=== PATIENT | female | born 1995 | race Caucasian/White ===

== ENCOUNTER 2021-08-12 06:38 | Outpatient (CLI) | payer OTHER, SELFPAY ==
--- NOTE | ~2021-08-12 | CT_ITS ---
EXAMINATION: CT soft tissue neck wo con EXAM DATE: 08/12/2021 07:16 INDICATION: Enlarged lymph nodes. TECHNIQUE: Spiral CT of the neck was performed without contrast. Axial, coronal and sagittal images were reviewed. The dose-length product (DLP) for this examination was 589.35 mGy-cm. The exposure was tailored according to patient size (auto mA exposure control), and iterative reconstruction (ASIR ) was used as additional dose reduction technique. There is no prior study for comparison. FINDINGS: There is an externally placed marker overlying the left posterior cervical triangle. Deep t o this is a lymph node measuring 1.0 x 0.7 cm, within normal size limits. This does have small expect ed fatty hilum. No pathologically enlarged cervical lymph nodes. The thyroid gland is unremarkable. The submandibular and parotid glands are symmetric. The superior mediastinum is unremarkable. T he airway is unremarkable. Parapharyngeal and pre-glottic fat planes are preserved. Limited evalu ation of cervical vessels on this noncontrast study. The orbits are unremarkable. Visualized sinu ses and mastoid air cells are well aerated. Lung apices unremarkable. Cervical spine normal. IMPRESSION: Cervical lymph nodes within normal size limits. Recommend clinical follow-up and if this enlarges consider a targeted soft tissue ultrasound exam. Reviewed, dictated and finalized at location B. TYPIST IMPRESSION: Cervical lymph nodes within normal size limits. Recommend clinical follow-up and if this enlarges consider a targeted soft tissue ultrasound exam .
== END 2021-08-12 06:39 | disposition home or self-care (01) ==
PROVIDERS: PCP Family Medicine
DX: R59.0 Localized enlarged lymph nodes (principal)
CPT/HCPCS: 70490

== ENCOUNTER 2021-08-18 11:07 | Outpatient (CLI) | payer OTHER, SELFPAY ==
--- NOTE | ~2021-08-18 | US_ITS ---
EXAMINATION: US soft tissue head and neck EXAM DATE: 08/18/2021 11:28 INDICATION: Enlarged cervical lymph nodes. TECHNIQUE: Multiple grayscale and Doppler images of the symptomatic left neck soft tissue region were obtained (by a technologist who performed the scan) and subsequently reviewed. There is no prior st udy for comparison. FINDINGS: Scanning in the area of left lateral neck concern demonstrates several lymph nodes, largest measuring 2.4 x 1.2 x 0.5 cm with fatty hilum. This is within normal size limits. IMPRESSION: Left cervical lymph nodes within normal size limits. Clinical follow-up and if these enla rge consider repeat exam. Reviewed, dictated and finalized at location A. ING ANALYST IMPRESSION: Left cervical lymph nodes within normal size limits. Clinical follo w-up and if these enlarge consider repeat exam.
== END 2021-08-18 11:08 | disposition home or self-care (01) ==
PROVIDERS: PCP Family Medicine; Visit Provider Family Medicine
DX: R59.1 Generalized enlarged lymph nodes (principal)
CPT/HCPCS: 76536

== ENCOUNTER 2021-12-01 09:13 | Outpatient (CLI) | payer OTHER, SELFPAY ==
[2021-12-01 09:41] LABS: Basophils Percent Auto 0.6 % (0.2-1.2); Eosinophils Absolute Auto 0.1 K/mm3 (0-0.3); Eosinophils Percent Auto 1.8 % (0-4.4); Hematocrit 41.8 % (37.0-47.0); Hemoglobin 13.7 g/dL (12.0-15.0); Immature Granulocyte Absolute 0.01 K/mm3 (0.00-0.031); Immature Granulocyte Percent A 0.2 % (0-0.5); Lymphocytes Absolute Auto 2.28 K/mm3 (0.9-3.2); Lymphocytes Percent Auto 34.4 % (18.3-44.2); Mean Corpuscular HGB Conc 32.8 g/dl (32-36); Mean Corpuscular Hemoglobin 30.5 pg (26-34); Mean Corpuscular Volume 93.1 fl (80-100); Monocytes Absolute Auto 0.5 K/mm3 (0.1-0.6); Monocytes Percent Auto 7.9 % (2.6-8.5); Neutrophils Absolute Auto 3.7 K/mm3 (1.3-6.7); Neutrophils Percent Auto 55.1 % (45.5-73.1); Platelet Count Result 213 k/mm3 (150-375); Red Blood Count 4.49 M/mm3 (4.2-5.4); Red Cell Distribution Width 12.6 % (11.5-14.5); White Blood Count 6.6 K/mm3 (4.5-10.0)
[2021-12-01 09:48] LABS: Alanine Aminotransferase 15 U/L (4-35); Albumin Level 4.3 g/dL (3.5-5.1); Alkaline Phosphatase 74 U/L (38-126); Anion Gap 3 mmol/L (8-16); Aspartate Amino Transferase 23 U/L (14-36); Bilirubin,Total 0.5 mg/dL (0.2-1.3); Blood Urea Nitrogen 9 mg/dL (7-17); Calcium 8.8 mg/dL (8.4-10.2); Carbon Dioxide 28 mmol/L (22-30); Chloride 107 mmol/L (98-107); Cholesterol 142 mg/dL (0-200); Estimated Glomerular Filt Rate > 60; Glucose 102 mg/dL (65-110); HDL Direct 40 mg/dL; Sodium 138 mmol/L (137-145); Triglycerides 65 mg/dL (<150)
[2021-12-01 09:59] LABS: LDL Cholesterol Direct 80 mg/dL
[2021-12-01 10:29] LABS: Hepatitis B Surface Antigen Negative (Negative)
[2021-12-01 10:36] LABS: HAV RESULT Negative (Negative); Hepatitis B Core IgM Result Negative (Negative)
[2021-12-01 10:47] LABS: Hepatitis C Virus Antibody Negative (Negative)
[2021-12-01 10:54] LABS: SPREG INTERNAL CONTROL Positive; Serum Qual hCG Negative
[2021-12-01 11:17] LABS: Rapid Plasma Reagin Non-Reactive (NonReactive)
[2021-12-04 04:21] LABS: FSH 7.9 mIU/mL (***); LH 3.3 mIU/mL (***)
[2021-12-05 11:15] LABS: HIV 1 2 Ag Ab 4th Gen w Rflxs Non-reactive (Non-reactive)
[2021-12-07 20:03] LABS: Estradiol, Ultrasensitive 24 pg/mL
== END 2021-12-01 09:14 | disposition home or self-care (01) ==
LOC: ANHLAB 09:16
PROVIDERS: PCP Family Medicine; Visit Provider Family Medicine
DX: K21.9 Gastro-esophageal reflux disease without esophagitis (principal); Z11.3 Encounter for screening for infections with a predominantly sexual mode of transmission; N92.6 Irregular menstruation, unspecified; R59.1 Generalized enlarged lymph nodes; Z13.220 Encounter for screening for lipoid disorders; F41.9 Anxiety disorder, unspecified
CPT/HCPCS: 36415; 80053; 80061; 80074; 82670; 83001; 83002; 84443; 84703; 85025; 86592; 86695; 86696; 87389

== ENCOUNTER 2022-01-03 16:15 | Outpatient (CLI) | payer OTHER, SELFPAY ==
--- NOTE | ~2022-01-03 | XR_ITS ---
XR thoracic spine 2V DATE: 01/03/2022 16:38 INDICATION: Back pain TECHNIQUE: AP and lateral views COMPARISON: None FINDINGS: Minimal scoliosis. No fracture or dislocation or bone destruction. The thoracic pedicles ar e intact. No paraspinal soft tissue thickening. IMPRESSION: Minimal scoliosis Reviewed, dictated and finalized at location A. IMPRESSION: Minimal scoliosis
--- NOTE | ~2022-01-03 | XR_ITS ---
XR lumbar spine 2-3V DATE: 01/03/2022 16:38 INDICATION: Back pain TECHNIQUE: AP, lateral, coned lateral lumbosacral views COMPARISON: None FINDINGS: Normal alignment of the lumbar spine. No fracture or bone destruction. The included lower t horacic and lumbar pedicles are intact. Lumbar and lumbosacral interspaces are well preserved. The sa croiliac joints are intact. IMPRESSION: Negative Reviewed, dictated and finalized at location A. IMPRESSION: Negative
== END 2022-01-03 16:16 | disposition home or self-care (01) ==
LOC: ANHIMG 16:21
PROVIDERS: PCP Family Medicine; Visit Provider Family Medicine
DX: M54.9 Dorsalgia, unspecified (principal)
CPT/HCPCS: 72070; 72100